=== PATIENT | female | born 1965 | race Caucasian/White ===

== ENCOUNTER 2021-08-16 10:15 | Inpatient (IN) | payer OTHER ==
[~2021-08-16] VITALS: Ht 157.5 cm; Wt 99.8 kg
[2021-08-16] MEDS ORDERED: HYDROCHLOROTH12.5 MG (10:33)
[2021-08-16] MEDS ORDERED: LOSARTAN POTASS25 MG (10:33)
[2021-08-21] MEDS ORDERED: CIPRO500 MG PO (13:34)
[2021-08-21] MEDS ORDERED: METRONIDAZOLE500 MG PO (13:35)
== END 2021-08-21 14:35 | disposition home or self-care (01) | DRG 392 ==
LOC: ER 10:15 → EDBD 10:19 → ER 10:19 → MEDI 08-17 22:37 → MEDJ 08-20 10:19
PROVIDERS: ADMIT Internal Medicine; ATTEND Internal Medicine
DX: K57.30 Diverticulosis of large intestine without perforation or abscess without bleeding (principal); N13.39 Other hydronephrosis; K62.5 Hemorrhage of anus and rectum; K52.89 Other specified noninfective gastroenteritis and colitis; K76.0 Fatty (change of) liver, not elsewhere classified; K59.09 Other constipation; E87.6 Hypokalemia; D72.828 Other elevated white blood cell count; I10 Essential (primary) hypertension; Z20.822 Contact with and (suspected) exposure to COVID-19